=== PATIENT | female | born 1980 | race Caucasian/White ===

== ENCOUNTER 2024-03-17 05:34 | Day surgery (SDC) | payer OTHER ==
[2024-03-08 10:09] LABS: HEMATOCRIT 43.4 % (36.0-45.00); HEMOGLOBIN 14.6 g/dL (12.0-15.00); MEAN CELL VOLUME 82.4 fL (80.00-100.00); MEAN CORPUSCULAR HEMOGLOBIN 27.7 pg (27.00-32.0); MEAN CORPUSCULAR HGB CONC 33.6 g/dl (32.0-36.0); PLATELET COUNT 290 K/uL (150-450); RED BLOOD COUNT 5.27 M/uL (4.00-6.00); RED CELL DISTRIBUTION WIDTH 14.1 % (11.5-14.5)
[2024-03-08 10:11] LABS: PH,URINE 7.5 (5.0-8.0); URINE APPEARANCE Clear; URINE BILIRRUBIN Negative (NEGATIVE); URINE BLOOD Small; URINE COLOR Yellow; URINE GLUCOSE Negative (NEGATIVE); URINE KETONE Negative (NEGATIVE); URINE LEUKOCYTE Small; URINE NITRATE Negative; URINE PROTEIN Negative (NEGATIVE); URINE UROBILINOGEN 0.2 E.U./dl
[2024-03-08 10:16] LABS: URINE BACTERIA 792.5 uL (0.0-1933); URINE RBC 5.8 uL (0.0-20.8); URINE WBC 3.5 uL (0.0-23.2)
[2024-03-08 10:27] LABS: INR 0.96; PARTIAL THROMBOPLASTIN TIME 28.7 SECONDS (22.0-34.0); PROTHROMBIN TIME 10.5 SECONDS (9.0-11.5)
[2024-03-08 10:31] LABS: URINE CAST 0.15 uL (0.0-1.40)
[2024-03-08 10:52] LABS: ALBUMIN 3.7 gm/dL (3.4-5.0); BILIRUBIN TOTAL 0.63 mg/dL (0.3-1.2); CALCIUM 8.9 mg/dL (8.5-10.1); CREATININE SERUM 0.77 mg/dL (0.55-1.02); GFR 81.43; GLOBULINA 3.4 G/DL (2.4-3.5); POTASSIUM 4.33 mEq/L (3.5-5.1); TOTAL PROTEIN 7.1 gm/dL (6.4-8.2)
[2024-03-17] MEDS ORDERED: CEFAZOLIN SODIUM 1,000 MG VIAL IV ONE (08:30)
[2024-03-17] MEDS ORDERED: MORGIDOX100 MG PO (09:07)
[2024-03-17] MEDS ORDERED: TRAM1TAB98 PO (09:07)
[2024-03-17] MEDS ORDERED: MORPHINE SULFATE 4 MG/ML VIAL IV ONE (09:45)
[2024-03-17] MEDS ORDERED: MEPERIDINE HCL 25 MG/ML AMPUL IV ONE (10:15)
== END 2024-03-17 12:45 | disposition home or self-care (01) ==
LOC: CIR.AMB 05:34
PROVIDERS: ATTEND Obstetrics & Gynecology
DX: N83.8 Other noninflammatory disorders of ovary, fallopian tube and broad ligament (principal); N88.8 Other specified noninflammatory disorders of cervix uteri; Z30.2 Encounter for sterilization; D39.0 Neoplasm of uncertain behavior of uterus